=== PATIENT | male | born 1945 | race African-American/Black ===

== ENCOUNTER 2018-12-14 08:00 | Outpatient (CLI) | payer MEDICARE, BC ==
[2018-12-14 11:55] LABS: CALCIUM 8.9 mg/dL (8.5-10.3)
[2018-12-14 12:01] LABS: HGB - HEMOGLOBIN 11.2 g/dL (14.0-18.0); MEAN CORPUSCULAR HEMOGLOBIN 27.3 pg (27.0-31.0); MEAN CORPUSCULAR HGB CONC 30.7 g/dL (32.0-36.0); MEAN PLATELET VOLUME 9.7 fL (7.4-11.4); RED BLOOD COUNT 4.1 10^6/uL (4.70-6.10); RED CELL DISTRIBUTION WIDTH 16.9 % (12.0-15.0); WHITE BLOOD COUNT 3.2 x10^3/uL (4.8-10.8)
== END 2018-12-14 23:59 | disposition home or self-care (01) ==
LOC: LAB.N 08:00
PROVIDERS: ATTEND Family Medicine
DX: I50.9 Heart failure, unspecified (principal)
CPT/HCPCS: 36415; 80048; 83880; 85027

== ENCOUNTER 2018-12-21 13:01 | Outpatient (CLI) | payer MEDICARE ==
--- NOTE | 2018-12-23 02:14 | XRAY Report ---
Reason: SHOULDER PAIN Procedure Date: 12/21/2018 Accession Number: [id number] / [id number] Procedure: XRN - Shoulder 3 View RT CPT Code: FULL RESULT: EXAM: RIGHT SHOULDER RADIOGRAPHY EXAM DATE: 12/21/2018 01:20 PM. CLINICAL HISTORY: Right shoulder pain. Injury 2 weeks ago. COMPARISON: None. TECHNIQUE: 3 views. FINDINGS: Bones: No acute fracture seen. Joints: No dislocation. Mild to moderate degenerative joint disease in the glenohumeral joint and acromioclavicular joint. Soft tissues: Grossly unremarkable. IMPRESSION: 1. No acute fracture or dislocation seen. 2. Mild to moderate degenerative joint disease. RADIA
== END 2018-12-21 13:02 | disposition home or self-care (01) ==
LOC: DI.N 13:01
PROVIDERS: ATTEND Family Medicine
DX: M19.011 Primary osteoarthritis, right shoulder (principal)

== ENCOUNTER 2019-01-04 08:00 | Outpatient (CLI) | payer MEDICARE ==
[2019-01-04 19:02] LABS: ABSOLUTE RETICS # AUTO 0.044 10^6/uL (0.020-0.110); BASOPHILS % (AUTO) 0.5 %; EOSINOPHILS # (AUTO) 0.2 10^3/uL (0.0-0.7); EOSINOPHILS % (AUTO) 4.3 %; HGB - HEMOGLOBIN 10.5 g/dL (14.0-18.0); LYMPHOCYTES # (AUTO) 0.9 10^3/uL (1.5-3.5); LYMPHOCYTES % (AUTO) 23.1 %; MEAN CORPUSCULAR HEMOGLOBIN 27.5 pg (27.0-31.0); MEAN CORPUSCULAR HGB CONC 30.6 g/dL (32.0-36.0); MEAN CORPUSCULAR VOLUME 89.8 fL (80.0-94.0); MEAN PLATELET VOLUME 9.7 fL (7.4-11.4); MONOCYTES # (AUTO) 0.7 10^3/uL (0.0-1.0); MONOCYTES % (AUTO) 18.3 %; NEUTROPHILS # (AUTO) 2.1 10^3/uL (1.5-6.6); NEUTROPHILS % (AUTO) 53.5 %; PLT - PLATELET COUNT 272 10^3/uL (130-450); RED BLOOD COUNT 3.82 10^6/uL (4.70-6.10); RED CELL DISTRIBUTION WIDTH 17.6 % (12.0-15.0); WHITE BLOOD COUNT 3.9 x10^3/uL (4.8-10.8)
[2019-01-04 19:26] LABS: ALBUMIN 3.4 g/dL (3.2-5.5); ALBUMIN/GLOBULIN RATIO 0.8 (1.0-2.2); BILIRUBIN,TOTAL 0.9 mg/dL (0.2-1.0); CREATININE 1.1 mg/dL (0.6-1.2); TOTAL PROTEIN 7.5 g/dL (6.7-8.2)
[2019-01-04 19:35] LABS: FERRITIN 152.6 ng/mL (23.9-336.2)
[2019-01-04 19:38] LABS: FOLATE 13.86 ng/mL (5.90 - >24.8)
== END 2019-01-04 23:59 | disposition home or self-care (01) ==
LOC: LAB.N 08:00
PROVIDERS: ATTEND Family Medicine
DX: I11.0 Hypertensive heart disease with heart failure (principal); I50.9 Heart failure, unspecified; D64.9 Anemia, unspecified; R06.09 Other forms of dyspnea
CPT/HCPCS: 36415; 80053; 82607; 82728; 82746; 83540; 83880; 84466; 85025; 85044

== ENCOUNTER 2019-01-31 11:27 | Outpatient (CLI) | payer MEDICARE ==
[2019-01-31 18:53] LABS: HGB - HEMOGLOBIN 11.6 g/dL (14.0-18.0); MEAN CORPUSCULAR HEMOGLOBIN 27.7 pg (27.0-31.0); MEAN CORPUSCULAR HGB CONC 31.2 g/dL (32.0-36.0); MEAN CORPUSCULAR VOLUME 88.8 fL (80.0-94.0); MEAN PLATELET VOLUME 9.7 fL (7.4-11.4); RED BLOOD COUNT 4.19 10^6/uL (4.70-6.10); RED CELL DISTRIBUTION WIDTH 17.1 % (12.0-15.0); WHITE BLOOD COUNT 3.6 x10^3/uL (4.8-10.8)
[2019-01-31 19:07] LABS: CALCIUM 9.1 mg/dL (8.5-10.3); CREATININE 1.3 mg/dL (0.6-1.2)
== END 2019-01-31 23:59 | disposition home or self-care (01) ==
LOC: LAB.N 11:27
PROVIDERS: ATTEND Family Medicine
DX: R06.00 Dyspnea, unspecified (principal)
CPT/HCPCS: 36415; 80048; 82274; 83880; 85027

== ENCOUNTER 2019-01-31 15:45 | Outpatient (CLI) | payer MEDICARE | END 2019-01-31 23:59 | disposition home or self-care (01) | LOC: LAB.R 15:45 | PROVIDERS: ATTEND Family Medicine | DX: D64.9 Anemia, unspecified (principal) | CPT/HCPCS: 82274 ==

== ENCOUNTER 2019-02-08 11:47 | Outpatient (CLI) | payer MEDICARE ==
[2019-02-08 18:29] LABS: HGB - HEMOGLOBIN 11.2 g/dL (14.0-18.0); MEAN CORPUSCULAR HEMOGLOBIN 26.8 pg (27.0-31.0); MEAN CORPUSCULAR VOLUME 89.2 fL (80.0-94.0); MEAN PLATELET VOLUME 9.8 fL (7.4-11.4); RED BLOOD COUNT 4.18 10^6/uL (4.70-6.10); RED CELL DISTRIBUTION WIDTH 17.5 % (12.0-15.0)
[2019-02-08 18:43] LABS: CALCIUM 9.2 mg/dL (8.5-10.3); CREATININE 1.2 mg/dL (0.6-1.2)
== END 2019-02-08 23:59 ==
LOC: LAB.N 11:47
PROVIDERS: ATTEND Family Medicine
DX: D64.9 Anemia, unspecified (principal)
CPT/HCPCS: 36415; 80048; 83880; 85027

== ENCOUNTER 2019-07-10 10:42 | Outpatient (CLI) | payer MEDICARE ==
[2019-07-10 12:48] LABS: HGB - HEMOGLOBIN 11.7 g/dL (14.0-18.0); MEAN CORPUSCULAR HEMOGLOBIN 27.3 pg (27.0-31.0); MEAN CORPUSCULAR HGB CONC 30.4 g/dL (32.0-36.0); MEAN CORPUSCULAR VOLUME 89.7 fL (80.0-94.0); RED BLOOD COUNT 4.29 10^6/uL (4.70-6.10); RED CELL DISTRIBUTION WIDTH 17.6 % (12.0-15.0); WHITE BLOOD COUNT 4.1 x10^3/uL (4.8-10.8)
[2019-07-10 13:49] LABS: CALCIUM 8.8 mg/dL (8.5-10.3); CREATININE 1.2 mg/dL (0.6-1.2)
== END 2019-07-10 23:59 | disposition home or self-care (01) ==
LOC: LAB.N 10:42
PROVIDERS: ATTEND Family Medicine
DX: R06.09 Other forms of dyspnea (principal)
CPT/HCPCS: 36415; 80048; 83880; 85027

== ENCOUNTER 2019-07-12 08:00 | Outpatient (CLI) | payer MEDICARE ==
[2019-07-12 18:55] LABS: CALCIUM 8.5 mg/dL (8.5-10.3); CREATININE 1.2 mg/dL (0.6-1.2)
== END 2019-07-12 23:59 | disposition home or self-care (01) ==
LOC: LAB.N 08:00
PROVIDERS: ATTEND Family Medicine
DX: R06.09 Other forms of dyspnea (principal)
CPT/HCPCS: 80048

== ENCOUNTER 2020-01-28 14:55 | Outpatient (CLI) | payer MEDICARE ==
[2020-01-28 19:04] LABS: ALBUMIN 2.9 g/dL (3.2-5.5); BILIRUBIN,DIRECT 0.2 mg/dL (0.1-0.5); BILIRUBIN,TOTAL 0.7 mg/dL (0.2-1.0); TOTAL PROTEIN 6.3 g/dL (6.7-8.2)
[2020-01-28 19:09] LABS: BASOPHILS % (AUTO) 0.6 %; EOSINOPHILS # (AUTO) 0.1 10^3/uL (0.0-0.7); EOSINOPHILS % (AUTO) 2.3 %; HGB - HEMOGLOBIN 13.2 g/dL (14.0-18.0); LYMPHOCYTES # (AUTO) 0.8 10^3/uL (1.5-3.5); LYMPHOCYTES % (AUTO) 23.9 %; MEAN CORPUSCULAR HEMOGLOBIN 27.2 pg (27.0-31.0); MEAN CORPUSCULAR HGB CONC 31.3 g/dL (32.0-36.0); MEAN CORPUSCULAR VOLUME 86.8 fL (80.0-94.0); MEAN PLATELET VOLUME 9.9 fL (7.4-11.4); MONOCYTES # (AUTO) 0.6 10^3/uL (0.0-1.0); MONOCYTES % (AUTO) 18.1 %; NEUTROPHILS # (AUTO) 1.9 10^3/uL (1.5-6.6); NEUTROPHILS % (AUTO) 54.8 %; PLT - PLATELET COUNT 249 10^3/uL (130-450); RED BLOOD COUNT 4.86 10^6/uL (4.70-6.10); RED CELL DISTRIBUTION WIDTH 17.3 % (12.0-15.0); WHITE BLOOD COUNT 3.4 x10^3/uL (4.8-10.8)
== END 2020-01-28 23:59 | disposition home or self-care (01) ==
LOC: LAB.WCP 14:55
PROVIDERS: ATTEND Family Medicine
DX: R18.8 Other ascites (principal)
CPT/HCPCS: 36415; 80076; 85025

== ENCOUNTER 2020-04-29 09:55 | Outpatient (CLI) | payer MEDICARE ==
--- NOTE | 2020-04-29 14:03 | XRAY Report ---
PROCEDURE: Knee Standing BILAT INDICATIONS: CHF, BILAT CLAUDICATION, BILAT KNEE PAIN TECHNIQUE: 2 views of the right knee, and 2 views of the left knee. COMPARISON: None. FINDINGS: Bones: No acute fractures or dislocations. Right worse than left bilateral tricompartmental osteoar thritis is seen with joint space narrowing and subchondral sclerosis. Enthesophyte formation along me dial periphery of bilateral medial femoral condyle is seen. Small enthesophyte formation and superior patellar at distal quadriceps tendon insertion site is also noted. No suspicious bony lesions. Join t spaces appear normal with weightbearing. Soft tissues: No knee joint effusions. No suspicious soft tissue calcification. IMPRESSION: Right worse than left bilateral tricompartmental osteoarthritis. No fracture or dislocation. No signi ficant joint effusion. Reviewed by: Kirby Barrios MD on 04/29/2020 2:02 PM PST Approved by: Kirby Barrios MD on 04/29/2020 2:02 PM PST Station ID: [id number]
--- NOTE | 2020-05-01 05:21 | Ultrasound Report ---
PROCEDURE: Ankle Brachial Index INDICATIONS: CHF, BILAT CLAUDICATION, BILAT KNEE PAIN TECHNIQUE: Ankle-brachial indices were obtained bilaterally and recorded. COMPARISONS: None. FINDINGS: Brachial blood pressure: Right 121/72: Left 117/63 Right ankle brachial index (BRITTANEY): 1.0 (122/73) Left ankle brachial index (BRITTANEY): 1.1 (132/67) Healing potential: Ankle pressures >55 mm Hg in non-diabetics and >80 mm Hg in diabetics are likely to achieve primary h ealing of ischemic foot ulcers. Toe pressures >30 mm Hg are likely to achieve primary healing of ischemic foot ulcers, toe or transme tatarsal amputations. IMPRESSION: Normal ABIs bilaterally. However see separately dictated duplex lower extremity arterial Doppler. Reviewed by: Av Hill on 04/30/2020 8:39 AM PST Approved by: Av Hill on 04/30/2020 8:39 AM PST Station ID: [id number]
== END 2020-04-29 09:56 | disposition home or self-care (01) ==
LOC: DI 09:55
PROVIDERS: ATTEND Internal Medicine
DX: I70.203 Unspecified atherosclerosis of native arteries of extremities, bilateral legs (principal); M17.0 Bilateral primary osteoarthritis of knee; R18.8 Other ascites; I50.9 Heart failure, unspecified
CPT/HCPCS: 93922; 93925

== ENCOUNTER 2020-04-29 09:56 | Outpatient (CLI) | payer MEDICARE ==
--- NOTE | 2020-04-30 08:37 | Ultrasound Report ---
PROCEDURE: Duplex Lwr Ext Arterial Bilat INDICATIONS: ASCITES, BILAT CLAUDICATION TECHNIQUE: Color and pulse Doppler interrogation was performed of both lower extremity arterial systems, with im age documentation. COMPARISON: None FINDINGS: Right lower extremity: Common femoral artery: 80 cm/sec, with monophasic flow. Deep femoral artery: 59 cm/sec, with monophasic flow. Proximal superficial femoral artery: 104 cm/sec, with triphasic flow. Mid superficial femoral artery: 95 cm/sec, with triphasic flow. Distal superficial femoral artery: 83 cm/sec, with biphasic flow. Popliteal artery: 65 cm/sec, with biphasic flow. Posterior tibial artery: 81 cm/sec, with biphasic flow. Anterior tibial artery/dorsalis pedis: 32/9 cm/sec, with monophasic flow. Rendon-scale imaging description: Severe atherosclerotic disease throughout the right lower extremity. BRITTANEY: 1.0 Left lower extremity: Common femoral artery: 54 cm/sec, with triphasic flow. Deep femoral artery: 48 cm/sec, with biphasic flow. Proximal superficial femoral artery: 181 cm/sec, with biphasic flow. Mid superficial femoral artery: 70 cm/sec, with biphasic flow. Distal superficial femoral artery: 57 cm/sec, with biphasic flow. Popliteal artery: 80 cm/sec, with biphasic flow. Posterior tibial artery: 65 cm/sec, with biphasic flow. Anterior tibial artery/dorsalis pedis: 23/8 cm/sec, with monophasic flow. Rendon-scale imaging description: Severe atherosclerotic disease throughout the right lower extremity. BRITTANEY: 1.1 IMPRESSION: 1. Diffuse atherosclerotic disease in the right lower extremity with no focal stenosis. 2. Diffuse atherosclerotic disease in the left lower extremity with a suspected focal stenosis in the proximal SFA. 3. ABIs however are normal bilaterally. 4. MR angiogram recommended to further evaluate. Reviewed by: Av Hill on 04/30/2020 8:36 AM PST Approved by: Av Hill on 04/30/2020 8:36 AM PST Station ID: [id number]
== END 2020-04-29 09:57 | disposition home or self-care (01) ==
LOC: DI 09:56
PROVIDERS: ATTEND Family Medicine
DX: I70.203 Unspecified atherosclerosis of native arteries of extremities, bilateral legs (principal); R18.8 Other ascites
CPT/HCPCS: 93925

== ENCOUNTER 2020-05-13 09:03 | Outpatient (CLI) | payer MEDICARE ==
--- OUTSIDE RECORDS SUMMARY | 2020-05-13 09:06 | EXTERNAL MEDICAL SUMMARY RPT | Continuity of Care Document ---
:1945 Demographics Phone Unavailable Preferred Language Greenlandic Marital Status Unknown Mosque Affiliation Unknown Race Unknown Ethnic Group Unknown Author Organization [place] Address [address] [place] [address] Phone Care Team Providers Name Role Phone MD Unavailable Unavailable Vanna Unavailable Unavailable ARLEN Unavailable Unavailable Unavailable Unavailable Problems date description facility 2020-01-28 14:55 [facility] 2020-02-27 00:00:00 [facility] 2020-03-13 00:00:00 Routine general [facility] facility 2020-03-13 00:00:00 COMPREHENSIVE METABOLIC PANEL [facility] 2020-03-13 00:00:00 B[facility]NET [facility] 2020-03-13 00:00:00 CBC W/Diff[facility]t [facility] 2020-03-13 00:00:00 Encounter for general adult [facility] medical examination without [facility] abnormal findings 2020-03-13 00:00:00 [facility] 2020-03-13 00:00:00 Screening - health check [facility] 2020-03-13 00:00:00 Alcohol use [facility] 2020-03-13 00:00:00 [facility] 2020-04-16 00:00:00 Iron & TIBC [facility] 2020-04-16 00:00:00 TSH WITH REFLEX TO FT4 [facility] 2020-04-16 00:00:00 Pain in joint involving lower [facility] leg [facility] 2020-04-16 00:00:00 Encounters for other specified id[facility] administrative purpose [facility] 2020-04-16 00:00:00 KNEES BILAT (standing, [facility] anteroposterior) [facility] 2020-04-16 00:00:00 US [facility]OMINAL COMPLETE [facility] 2020-04-16 00:00:00 MPS; EXERCISE [facility] 2020-04-16 00:00:00 COMPREHENSIVE METABOLIC PANEL [facility] 2020-04-16 00:00:00 LIPIDS SCREEN [facility] 2020-04-16 00:00:00 VITAMIN B 12 [facility] 2020-04-16 00:00:00 Ferritin [facility] 2020-04-16 00:00:00 Transferrin [facility] 2020-04-16 00:00:00 CBC W/Diff/Plt [facility] 2020-04-16 00:00:[address] [facility] 2020-04-16 00:00:00 ECHO TRANSTHORACIC COMPLETE [facility] 2020-04-16 00:00:00 US ANKLE BRACHIAL INDEX [facility] 2020-04-16 00:00:00 US ARTERIAL, LOWER EXTREMITY, [facility] BILATERAL [facility] 2020-04-16 00:00:00 Pain in unspecified [facility] 2020-04-16 00:00:00 Other [facility] 2020-04-16 00:00:00 Other specified [facility] 2020-04-16 00:00:00 Health-related behavior [facility] 2020-04-16 00:00:00 [facility] exposure [facility] 2020-04-16 00:00:00 Exercise [facility] 2020-04-16 00:00:00 Never smoker [facility] 2020-04-16 00:00:[facility] 2020-04-16 00:00:[facility] 2020-04-16 00:00:00 Procedure carried out on [facility] subject [facility] 2020-04-16 00:00:00 [facility] 2020-04-16 00:00:00 Tobacco smoking status [facility]IS [facility] 2020-04-16 00:00:00 Total score? [facility] Care [facility] 2020-04-29 00:00:00 Osteoarthrosis, unspecified [facility] whether generalized or [facility] localized, involving lower leg 2020-04-29 00:00:00 Bilateral primary [facility] Care osteoarthritis of knee [facility] 2020-04-29 00:00:00 Osteoarthritis of knee [facility] Allergies date description facility NO KNOWN ENVIRONMENTAL ALLERGIES [facility] ATORVASTATIN CALCIUM [facility] ical Center BUPROPION HCL [facility] CHOLESTYRAMINE (WITH SUGAR) [facility] [place] CHOLESTYRAMINE [facility] CLOPIDOGREL BISULFATE [facility] HYDROCODONE-ACETAMINOPHEN [facility] ISOSORBIDE [facility] LISINOPRIL [facility] METOPROLOL [facility] NEOMYCIN-POLYMYXIN B-DEXAMETH [facility] [place] NIACIN [facility] PAROXETINE [facility] SERTRALINE [facility] TAMSULOSIN [facility] PHENYTOIN SODIUM EXTENDED [facility] Medications date description facility 2020-02-27 00:00:00 null [facility] 2020-02-27 00:00:00 null [facility] 2020-02-27 00:00:00 null [facility] 2020-02-27 00:00:00 null [facility] 2020-02-27 00:00:00 FLUTICASONE PROPIONATE [facility] 2020-02-27 00:00:00 SPIRONOLACTONE [facility] 2020-02-27 00:00:00 FLUTICASONE PROPIONATE [facility] 2020-02-27 00:00:00 SPIRONOLACTONE [facility] 2020-02-27 00:00:00 null [facility] 2020-02-27 00:00:00 null [facility] 2020-02-27 00:00:00 null [facility] 2020-02-27 00:00:00 null [facility] 2020-02-27 00:00:00 FLUTICASONE PROPIONATE [facility] 2020-02-27 00:00:00 SPIRONOLACTONE [facility] 2020-02-27 00:00:00 FLUTICASONE PROPIONATE [facility] 2020-02-27 00:00:00 SPIRONOLACTONE [facility] 2020-03-13 00:00:00 null [facility] 2020-03-13 00:00:00 null [facility] 2020-04-16 00:00:00 null [facility] 2020-04-16 00:00:00 null [facility] Procedures date description facility 2020-03-13 00:00:00 COMPREHENSIVE METABOLIC PANEL [facility] date description facility 2020-03-13 00:00:00 B[facility]NET SORTER [facility] date description facility 2020-03-13 00:00:00 CBC W/Diff/Plt [facility] date description facility 2020-03-13 00:00:00 First Ix admin via ID [facility] jet injects with counseling by [facility] physician for adult date description facility 2020-03-13 00:00:00 Fluzone High-Dose Intramuscular [facility] Suspension [facility] date description facility 2020-03-13 00:00:00 [facility] date description facility 2020-04-16 00:00:00 Inj, Medicare Pneumovax [facility] date description facility 2020-04-16 00:00:[facility] Social History date description facility 2020-03-13 00:00:00 [facility] smoker [facility] date description facility 2020-04-16 00:00:00 [facility]oker [facility] Social History date description facility 2020-03-13 00:00:00 [facility]oker [facility] date description facility 2020-04-16 00:00:00 [facility] smoker [facility] date description facility [id number]
== END 2020-05-13 09:04 | disposition home or self-care (01) ==
LOC: DI 09:03
PROVIDERS: ATTEND Internal Medicine
DX: I50.9 Heart failure, unspecified (principal); I73.9 Peripheral vascular disease, unspecified; M25.561 Pain in right knee; M25.562 Pain in left knee; I08.3 Combined rheumatic disorders of mitral, aortic and tricuspid valves; I31.3 Pericardial effusion (noninflammatory); J90 Pleural effusion, not elsewhere classified
CPT/HCPCS: 93306

== ENCOUNTER 2020-07-10 08:57 | Outpatient (CLI) | payer MEDICARE ==
[2020-07-10] MEDS ORDERED: AMINOPHYLLINE 500 MG/20 ML VIAL ONE (11:00)
[2020-07-10] MEDS ORDERED: REGADENOSON 0.4 MG/5 ML SYRINGE IVP ONE (11:00)
--- NOTE | 2020-07-10 20:55 | CARDIAC PROCEDURE NOTE ---
DATE OF SERVICE: 07/10/2020 Physician: Rachel Reyes MD, [facility] INDICATION: CHF. CARDIAC RISK FACTORS: Male gender, advanced age, other past history not known. The patient is on a long list of medications and does not know their names; and he did not bring in his medication list to review. DESCRIPTION OF PROCEDURE: After signing informed consent, the patient underwent a modified Ang-protocol treadmill stress test. Because his resting heart rate was 47 and target heart rate was 124, presumptive use of Lexiscan was also reviewed and the patient consented for it's use if needed. Nuclear myocardial perfusion images were done before and after exercise. RESTING HEART RATE: 47. PEAK HEART RATE: 108 (73% predicted maximum heart rate for age). RESTING BLOOD PRESSURE: 122/68. PEAK BLOOD PRESSURE: 164/79. The patient exercised for 5 minutes on a modified Ang-protocol treadmill stress test. He could only achieve a heart rate in the 90s. Therefore, IV Lexiscan was given prior to his peak of exertion. The patient developed moderate to severe shortness of breath at the peak of exercise, he had no chest pain. Oxygen saturation was 95% on room air at baseline and dropped to 74% on room air at peak exertion. RESTING EKG: Sinus bradycardia, first-degree AV block, left bundle branch block, low voltage in the limb leads, LVH voltage in the precordial leads. EKG AT PEAK: Similar left bundle branch block pattern, cannot comment on ST segments or T waves therefore. SUMMARY: 1. Abnormal resting EKG with marked bradycardia and with a left bundle branch block. 2. Poor exercise tolerance. 3. Oxygen desaturation occurs with exercise. 4. EKG is indeterminate for evaluating for ischemia, due to the presence of left bundle-branch block. 5. Nuclear images were reported separately and showed: LVEF depressed at 43%, small reversible perfusion defect in the infero-lateral wall, suspicious for ischemia, and increase tracer activity present at the LV septum, suggesting asymmetric septal hypertrophy (IHSS). (The delay in this report is due to waiting for final nuclear scan reading, which was done on 07/13/20). RECOMMENDATIONS: 1. Cardiology referral or further follow-up. 2. Consider evaluation for home O2. 3. Consider decreasing (presumed) beta-elizabeth dose, because of marked resting bradycardia with a rate of 47. cc: Royce Prabhakar MD TD: 07/10/2020 20:46 MTDD
--- NOTE | 2020-07-13 09:20 | Nuclear Medicine Report ---
PROCEDURE: Rest and exercise myocardial perfusion SPECT with gated imaging and ejection fraction INDICATIONS: FRANTZ - CHF RADIOPHARMACEUTICAL: 11.7 mCi Tc-99m Myoview IV at rest and 41.2 mCi Tc-99m Myoview IV at peak exerc ise. Qtl-kew-cbanisyz was performed. TECHNIQUE: Radiopharmaceutical was injected at peak stress test, and also at rest. SPECT images wer e obtained. SPECT myocardial perfusion images were displayed in short axis, horizontal long axis, an d vertical long axis views. Gated images were reviewed using AutoQUANT software. COMPARISON: None available. FINDINGS: Raw data: There is good myocardial labeling by radiotracer. No significant motion artifacts. Lung- to-heart ratio is 0.34 (normal is less than 0.38 for tetrafosmin tracer). Left ventricle function: Gated images demonstrate normal left ventricle wall thickening. No segment al wall motion abnormality. No transient ischemic dilation; TID is 1.0 (normal less than 1.3). The left ventricle resting end-diastolic volume is 87 mL. Left ventricle stress ejection fraction is 43% ; normal values are above 45%. There is mild diffuse hypokinesia of the left ventricle. Myocardial perfusion: There is a small, mild, reversible perfusion defect in the inferior lateral wal l, suspicious for myocardial ischemia. On prone imaging, the area has improved activity consistent wi th a degree of attenuation artifact. There is more prominent activity in septum relative to rest of t he left ventricle, likely secondary to asymmetric left ventricular hypertrophy. IMPRESSION: 1. Probably abnormal myocardial perfusion images. There is a small, mild, reversible perfusion defect in the inferior lateral wall, suspicious myocardial ischemia. On prone imaging, the defect is improv ed consistent with a degree of attenuation artifact. 2. There is more pronounced activity in the septum relative to the rest of the left ventricle, likely secondary to asymmetric left ventricular hypertrophy. 3. Normal left ventricular volume and mildly decreased systolic function. No transient ischemic dilat ion of the left ventricle. 4. Please correlate with stress EKG report. PQRS ATTESTATIONS: Measure 322 - Is this imaging test primarily performed on a low-risk surgery patient for preoperative evaluation within 30 days preceding their low-risk non-cardiac surgery? Low-risk surgery is defined as cardiac or myocardial infarction less than 1%, including (but not limited to) endoscopic pr ocedures, superficial procedures, cataract surgery, and excisional breast surgery: Answer: No Measure 323 - Is this imaging test performed primarily for the monitoring of an asymptomatic patient who had percutaneous coronary intervention on the visit date or within 2 years of the visit date? An swer: No Measure 324 - Is this imaging test performed primarily for the initial detection and risk assessment on an asymptomatic, low coronary heart disease patient? Low CHD risk definition = clinicians should consider the maximum number of available patient factors used to estimate risk based on [place] [facility] (A TP III criteria), typically age, gender, diabetes, smoking status, and use of blood pressure medicati on, and integrate age appropriate estimates for missing elements, such as LDL or standard blood press ure. Answer: No Reviewed by: Lacey Hanson MD on 07/13/2020 9:19 AM PDT Approved by: Lacey Hanson MD on 07/13/2020 9:19 AM PDT Station ID: [id number]
== END 2020-07-10 08:58 | disposition home or self-care (01) ==
LOC: DI 08:57
PROVIDERS: ATTEND Internal Medicine
DX: I44.7 Left bundle-branch block, unspecified (principal); R00.1 Bradycardia, unspecified
CPT/HCPCS: 78452; 93017; A9500; J2785

== ENCOUNTER 2021-08-11 08:00 | Outpatient (CLI) | payer MEDICARE ==
--- NOTE | 2021-08-12 08:33 | XRAY Report ---
PROCEDURE: Tib/Fib LT INDICATIONS: L LOWER LEG PX TECHNIQUE: 2 views of the tibia and fibula were acquired. COMPARISON: None FINDINGS: Bones: No fractures or dislocations. No suspicious bony lesions. Degenerative changes both ankles. Soft tissues: No suspicious soft tissue calcifications or masses. IMPRESSION: No acute abnormality. Reviewed by: Av Hill on 08/12/2021 8:32 AM PDT Approved by: Av Hill on 08/12/2021 8:32 AM PDT Station ID: [id number]
== END 2021-08-11 23:59 | disposition home or self-care (01) ==
LOC: DI.N 08:00
PROVIDERS: ATTEND Nurse Practitioner
DX: M79.662 Pain in left lower leg (principal)